=== PATIENT | female | born 1960 | race American Indian/Alaskan Native ===

== ENCOUNTER 2017-08-04 15:11 | Inpatient (IN) | payer MEDICAID ==
--- NOTE | 2017-08-04 16:23 | Emergency Department Report ---
HPI - General Chief Complaint: Weakness Time Seen by Provider: 08/04/17 16:06 - HPI HPI: Room 19 The patient is a 57-year-old female presenting with a chief complaint of bilateral lower extremity weakness. The patient states she went to sleep last night at 21:30 in her normal state of health and awakened this morning at approximately 11:30 and noticed weakness in bilateral lower extremities. The patient states she also noticed pain in her lower back at that time. The patient states she was unable to get out of bed. The patient has a history of right-sided weakness from previous CVA in 2016 states the weakness in her right leg is different from this residual deficit. Patient denies any history of fever or recent URI symptoms. Patient denies any other complaints Location: Low back, bilateral lower extremities Duration:, Constant since since 11:30 Quality: Weakness Severity: Moderate Modifying factors: [see above] Context: [see above] Mode of transportation: [not driving] ED Past Medical Hx - Past Medical History Hx Hypertension: Yes Hx CVA: Yes (right sided deficits) Hx Diabetes: Yes Hx Arthritis: Yes Additional medical history: Lupus, neuropathy - Surgical History Hx Cholecystectomy: Yes - Family History Family history: no significant - Social History Smoking Status: Never Smoker Substance Use Type: None - Medications Home Medications: Home Medications Medication Instructions Recorded Confirmed Last Taken Type Ranitidine HCl [Zantac 300 MG TAB] 300 mg PO QPM 06/02/14 04/01/15 02/08/15 History Sertraline [Zoloft] 50 mg PO QDAY 06/02/14 04/01/15 02/08/15 History Zolpidem [Ambien] 10 mg PO HS PRN #30 tablet 02/22/15 04/01/15 Unknown Rx Clopidogrel [Plavix] 75 mg PO QDAY #30 tablet 04/01/15 Unknown Rx Hydroxychloroquine [Plaquenil] 200 mg PO QDAY #30 tablet 04/01/15 Unknown Rx Insulin Glargine [Lantus VIAL] 100 units SQ QHS #30 day 04/01/15 Unknown Rx Insulin NPH/Regular [NovoLIN 70/30] 10 unit SUB-Q BIDDIAB #30 day 04/01/15 Unknown Rx Lisinopril/Hydrochlorothiazide 1 tab PO QDAY #30 tablet 04/01/15 Unknown Rx [Zestoretic 10-12.5 mg] Pantoprazole [Protonix TAB] 40 mg PO QDAY #30 tablet 04/01/15 Unknown Rx Pregabalin [Lyrica] 100 mg PO TID #90 capsule 04/01/15 Unknown Rx Simvastatin [Zocor TAB] 20 mg PO QHS #30 tablet 04/01/15 Unknown Rx hydrOXYzine PAMOATE [Vistaril] 50 mg PO Q4HR PRN #30 capsule 04/01/15 Unknown Rx metFORMIN [Glucophage] 850 mg PO BID #60 tablet 04/01/15 Unknown Rx predniSONE [Deltasone] 20 mg PO QDAY #30 tablet 04/01/15 Unknown Rx Oxycodone HCl/Acetaminophen 1 tab PO Q6HR PRN #30 tablet 04/02/15 Unknown Rx [Percocet 7.5/325 mg] ED Review of Systems ROS: Stated complaint: UNABLE TO WALK Other details as noted in HPI Comment: All other systems reviewed and negative Constitutional: denies: chills, fever Eyes: denies: eye pain, eye discharge, vision change ENT: denies: ear pain, throat pain Respiratory: denies: cough, shortness of breath, wheezing Cardiovascular: denies: chest pain, palpitations Endocrine: no symptoms reported Gastrointestinal: denies: abdominal pain, nausea, diarrhea Genitourinary: denies: urgency, dysuria, discharge Musculoskeletal: back pain Skin: denies: rash, lesions Neurological: weakness. denies: paresthesias Psychiatric: denies: anxiety, depression Hematological/Lymphatic: denies: easy bleeding, easy bruising Physical Exam - Physical Exam Vital Signs: Vital Signs 08/04/17 15:49 Temperature 98.4 F Pulse Rate 72 Respiratory 18 Rate Blood Pressure 170/89 O2 Sat by Pulse 100 Oximetry Physical Exam: GENERAL: The patient is well-developed well-nourished female lying on stretcher not appearing to be in acute distress. [] HEENT: Normocephalic. Atraumatic. Extraocular motions are intact. Patient has moist mucous membranes. NECK: Supple. Trachea midline CHEST/LUNGS: Clear to auscultation. There is no respiratory distress noted. HEART/CARDIOVASCULAR: Regular. There is no tachycardia. There is no gallop rub or murmur. ABDOMEN: There is no abdominal distention. SKIN: There is no rash. There is no edema. There is no diaphoresis. NEURO: The patient is awake, alert, and oriented. The patient is cooperative. Normal sensation bilateral lower extremities. Patient able to flex right lower extremity at the knee and hip although with some difficulty. Patient also able to flex left lower extremity at knee and hip with considerably less effort than the right. 2+ bilateral patellar DTRs. The patient has normal speech. 1-2 beats of clonus bilateral feet MUSCULOSKELETAL: There is pain in the lumbar spine. There is no evidence of acute injury. ED Course Vital Signs 08/04/17 15:49 Temperature 98.4 F Pulse Rate 72 Respiratory 18 Rate Blood Pressure 170/89 O2 Sat by Pulse 100 Oximetry ED Medical Decision Making - Lab Data Result diagrams: 08/04/17 16:30 08/04/17 16:30 Laboratory Tests 08/04/17 08/04/17 08/04/17 15:51 16:30 16:30 WBC 4.3 L RBC 2.92 L Hgb 9.9 L Hct 29.1 L MCV 100 H MCH 34 H MCHC 34 RDW 16.5 H Plt Count 180 Lymph % (Auto) 52.0 H [place] % (Auto) 6.1 Eos % (Auto) 1.7 Baso % (Auto) 0.1 Lymph # 2.2 [place] # 0.3 Eos # 0.1 Baso # 0.0 Seg Neutrophils % 40.1 Seg Neutrophils # 1.7 L PT 14.5 INR 1.07 APTT 29.9 Thrombin Time Sodium Potassium Chloride Carbon Dioxide Anion Gap BUN Creatinine Estimated GFR BUN/Creatinine Ratio Glucose POC Glucose 115 H Calcium Troponin T 08/04/17 08/04/17 16:30 16:30 WBC RBC Hgb Hct MCV MCH MCHC RDW Plt Count Lymph % (Auto) [place] % (Auto) Eos % (Auto) Baso % (Auto) Lymph # [place] # Eos # Baso # Seg Neutrophils % Seg Neutrophils # PT INR APTT Thrombin Time 15.1 Sodium 141 Potassium 4.5 Chloride 104.3 Carbon Dioxide 25 Anion Gap 16 BUN 15 Creatinine 0.6 L Estimated GFR > 60 BUN/Creatinine Ratio 25 Glucose 101 H POC Glucose Calcium 9.3 Troponin T < 0.010 - EKG Data -: EKG Interpreted by [place] EKG shows normal: sinus rhythm Rate: normal - EKG Data When compared to previous EKG there are: previous EKG unavailable Interpretation: normal EKG - Radiology Data Radiology results: report reviewed (CT head, MRI L spine), image reviewed (CT head, MRI L spine) CT head (read by radiologist)-chronic ischemic changes as noted above. No acute intracranial findings MRI lumbar spine (read by radiologist) 6-multilevel degenerative disc disease most pronounced at L4-5 where there is 12 mm of anterolisthesis, a large broad- based posterior disc bulge, severe bilateral facet arthropathy with severe bilateral neuroforaminal narrowing and mild spinal stenosis. - Differential Diagnosis transverse myelitis, Guillan-[place] syndrome, electrolyte imbalance, lumbar Critical care attestation.: If time is entered above; I have spent that time in minutes in the direct care of this critically ill patient, excluding procedure time. ED Disposition Clinical Impression: Bilateral leg weakness Disposition: OP ADMIT IP TO THIS HOSP Is pt being admited?: Yes Does the pt Need Aspirin: Yes Condition: Fair Referrals: PRIMARY CARE, [Primary Care Provider] - 3-5 Days Time of Disposition: 19:32 (Hospitalist paged)
[2017-08-04 16:44] LABS: Red Blood Count 2.92 M/mm3 (3.65-5.03); White Blood Count 4.3 K/mm3 (4.5-11.0)
[2017-08-04 16:45] LABS: Basophils % (Auto) 0.1 % (0.0-1.8); Eosinophils % (Auto) 1.7 % (0.0-4.3); Hematocrit 29.1 % (30.3-42.9); Hemoglobin 9.9 gm/dl (10.1-14.3); Mean Corpuscular HGB Conc 34 % (30-34); Mean Corpuscular Hemoglobin 34 pg (28-32); Mean Corpuscular Volume 100 fl (79-97); Platelet Count 180 K/mm3 (140-440); Red Cell Distribution Width 16.5 % (13.2-15.2)
[2017-08-04 16:54] LABS: INR 1.07 (0.87-1.13)
[2017-08-04 16:55] LABS: Anion Gap 16 mmol/L; BUN/Creatinine Ratio 25; Blood Urea Nitrogen 15 mg/dL (7-17); Calcium 9.3 mg/dL (8.4-10.2); Carbon Dioxide 25 mmol/L (22-30); Chloride 104.3 mmol/L (98-107); Glucose 101 mg/dL (65-100); Partial Thromboplastin Time 29.9 Sec. (24.2-36.6); Potassium 4.5 mmol/L (3.6-5.0); Sodium 141 mmol/L (137-145)
--- NOTE | 2017-08-04 17:54 | Cat Scan Report ---
FINAL REPORT EXAM: CT HEAD/BRAIN WO CON HISTORY: neuro deficits bilat extrem weakness TECHNIQUE: CT head without contrast PRIORS: None. FINDINGS: There is encephalomalacia both frontal lobes and right posterior temporal/parietal lobes consistent with remote ischemic changes. Remote lacunar infarcts are present within both thalami. There are patchy areas of hypodensity throughout the supratentorial white matter. No acute intra or extra-axial hemorrhage identified.. No acute parenchymal abnormalities are identified. No evidence for midline shift or mass effect. IMPRESSION: Chronic ischemic changes as noted above No acute intracranial findings
[2017-08-04] MEDS ORDERED: NORCO 5/325 PO ONE (18:09)
--- NOTE | 2017-08-04 19:24 | Magnetic Resonance Report ---
FINAL REPORT EXAM: MR LUMBAR SPINE WO CON HISTORY: bilateral lower extremity weakness, low back pain TECHNIQUE: MRI of the lumbar spine: Axial: T1, T2 Sagittal: T1, T2 and STIR PRIORS: None. FINDINGS: The lumbar vertebral bodies are normal in height. There is 12 mm of anterolisthesis of L4 on L5 and 3 mm of retrolisthesis L5 on S1. There is diffuse disc desiccation the paraspinous soft tissues are unremarkable. The conus medullaris is in a normal location and has a normal signal intensity and appearance. The following levels were evaluated in the axial plane: T 12-L1: No disc bulge or protrusion. The facet joints appear well preserved. No spinal or foraminal stenosis. L1-L2: No disc bulge or protrusion. The facet joints appear well preserved. No spinal or foraminal stenosis. L2-L3: No disc bulge or protrusion. The facet joints appear well preserved. Mild right neural foraminal narrowing. Bilateral lateral recess narrowing. No spinal or foraminal stenosis. L3-L4: Broad-based posterior disc bulge. Moderate to severe bilateral facet and ligamentum flavum hypertrophy. Mild bilateral neural foraminal narrowing. No spinal or foraminal stenosis. L4-L5: Anterolisthesis L4 on L5 with unroofing of the posterior margin of the disc. Large broad-based posterior disc bulge. Severe bilateral facet arthropathy. Severe bilateral neural foraminal narrowing and mild spinal stenosis. L5-S1: Broad-based posterior disc bulge that appears to make contact with the bilateral S1 nerve roots.. Moderate to severe for bilateral facet arthropathy. Severe bilateral neural foraminal narrowing. No spinal or foraminal stenosis. IMPRESSION: 1. Multilevel degenerative disc disease most pronounced at L4-5 where there is 12 mm of anterolisthesis, a large broad-based posterior disc bulge, severe bilateral facet arthropathy with severe bilateral neural foraminal narrowing and mild spinal stenosis 2. Please see the full description of findings above.
--- NOTE | 2017-08-04 19:42 | History and Physical Report ---
History of Present Illness Chief complaint: I feel weak, on the other side now. History of present illness: 57 YO Female with HTN, CVA with RHP, DM, OA, SLE, Neuropathy, Moderate-Severe LDD presents to ED for evaluation. Pt states that she was in her normal state of health when went to bed, but awoke around 1130 hrs and experienced an acute onset of Left side weakness. Pt states that she was unable to get out of bed. Pt also states that she experienced pain in her back. Pt denies fever, chills, CP, Palpitations, NVD, syncope, productive cough, recent ill contacts, vision changes, vertigo, trauma, loss of bowel/bladder continence. Past History Past Medical History: arthritis, diabetes, hypertension, stroke, other (lupus) Past Surgical History: cholecystectomy Social history: single. denies: smoking, alcohol abuse, prescription drug abuse Family history: hypertension Medications and Allergies Allergies Allergy/AdvReac Type Severity Reaction Status Date / Time ketorolac tromethamine AdvReac Nausea Verified 04/01/15 10:49 [From Toradol] morphine AdvReac Nausea Verified 04/01/15 10:49 Home Medications Medication Instructions Recorded Confirmed Last Taken Type Ranitidine HCl [Zantac 300 MG TAB] 300 mg PO QPM 06/02/14 04/01/15 02/08/15 History Sertraline [Zoloft] 50 mg PO QDAY 06/02/14 04/01/15 02/08/15 History Zolpidem [Ambien] 10 mg PO HS PRN #30 tablet 02/22/15 04/01/15 Unknown Rx Clopidogrel [Plavix] 75 mg PO QDAY #30 tablet 04/01/15 Unknown Rx Hydroxychloroquine [Plaquenil] 200 mg PO QDAY #30 tablet 04/01/15 Unknown Rx Insulin Glargine [Lantus VIAL] 100 units SQ QHS #30 day 04/01/15 Unknown Rx Insulin NPH/Regular [NovoLIN 70/30] 10 unit SUB-Q BIDDIAB #30 day 04/01/15 Unknown Rx Lisinopril/Hydrochlorothiazide 1 tab PO QDAY #30 tablet 04/01/15 Unknown Rx [Zestoretic 10-12.5 mg] Pantoprazole [Protonix TAB] 40 mg PO QDAY #30 tablet 04/01/15 Unknown Rx Pregabalin [Lyrica] 100 mg PO TID #90 capsule 04/01/15 Unknown Rx Simvastatin [Zocor TAB] 20 mg PO QHS #30 tablet 04/01/15 Unknown Rx hydrOXYzine PAMOATE [Vistaril] 50 mg PO Q4HR PRN #30 capsule 04/01/15 Unknown Rx metFORMIN [Glucophage] 850 mg PO BID #60 tablet 04/01/15 Unknown Rx predniSONE [Deltasone] 20 mg PO QDAY #30 tablet 04/01/15 Unknown Rx Oxycodone HCl/Acetaminophen 1 tab PO Q6HR PRN #30 tablet 04/02/15 Unknown Rx [Percocet 7.5/325 mg] Review of Systems Constitutional: no weight loss, no weight gain, no fever, no chills, no sweats Ears, nose, mouth and throat: no ear pain, no ear discharge, no tinnitis, no decreased hearing, no nose pain, no nasal congestion, no nasal discharge Cardiovascular: no chest pain, no orthopnea, no palpitations, no edema, no syncope, no lightheadedness Respiratory: no cough, no cough with sputum, no excessive sputum, no hemoptysis , no shortness of breath Gastrointestinal: no abdominal pain, no nausea, no vomiting, no diarrhea, no constipation, no change in bowel habits Genitourinary Female: no pelvic pain, no flank pain, no dysuria, no urinary frequency, no urgency Rectal: no pain, no incontinence, no bleeding Musculoskeletal: low back pain, no neck stiffness, no neck pain, no shooting arm pain, no arm numbness/tingling Integumentary: no rash, no pruritis, no redness, no sores, no wounds Neurological: weakness, parathesias, numbness, gait dysfunction, motor disturbance, no head injury, no transient paralysis, no paralysis, no tingling, no seizures, no syncope, no vertigo, no headaches, no migraines Psychiatric: no anxiety, no memory loss, no change in sleep habits, no sleep disturbances, no insomnia, no hypersomnia, no change in appetite Endocrine: no cold intolerance, no heat intolerance, no polyphagia, no excessive thirst, no polydipsia, no polyuria, no nocturia Hematologic/Lymphatic: no easy bruising, no easy bleeding Allergic/Immunologic: no urticaria, no allergic rhinitis, no wheezing Exam - Constitutional Vitals: Temp Pulse Resp BP Pulse Ox 98.4 F 60 13 192/82 100 08/04/17 15:49 08/04/17 19:00 08/04/17 19:00 08/04/17 19:00 08/04/17 18:45 General appearance: Present: mild distress, obese - EENT Eyes: Present: PERRL ENT: hearing intact, clear oral mucosa - Neck Neck: Present: supple, normal ROM - Respiratory Respiratory effort: normal Respiratory: bilateral: CTA - Cardiovascular Heart Sounds: Present: S1 & S2. Absent: rub, click - Extremities Extremities: pulses symmetrical, No edema Peripheral Pulses: within normal limits - Abdominal General gastrointestinal: Present: soft, non-tender, non-distended, normal bowel sounds Female genitourinary: Present: normal - Integumentary Integumentary: Present: clear, warm, dry - Musculoskeletal Musculoskeletal: right sided weakness, left sided weakness - Psychiatric Psychiatric: appropriate mood/affect, intact judgment & insight - Neurologic Neurologic: moves all extremities, no gait normal Results - Labs CBC & Chem 7: 08/04/17 16:30 08/04/17 16:30 Labs: Abnormal lab results 08/04/17 08/04/17 08/04/17 Range/Units 15:51 16:30 16:30 WBC 4.3 L (4.5-11.0) K/mm3 RBC 2.92 L (3.65-5.03) M/mm3 Hgb 9.9 L (10.1-14.3) gm/dl Hct 29.1 L (30.3-42.9) % MCV 100 H (79-97) fl MCH 34 H (28-32) pg RDW 16.5 H (13.2-15.2) % Lymph % (Auto) 52.0 H (13.4-35.0) % Seg Neutrophils # 1.7 L (1.8-7.7) K/mm3 Creatinine 0.6 L (0.7-1.2) mg/dL Glucose 101 H (65-100) mg/dL POC Glucose 115 H (70-105) Assessment and Plan - Patient Problems (1) CVA (cerebral infarction) Onset Date: 05/24/14 Current Visit: No Status: Suspected Qualifiers: Cerebral infarction mechanism: C Precerebral and cerebral artery: middle cerebral artery Laterality of affected vessel: right Plan to address problem: Suspected Stroke versus exacerbation of Lumbar Disk Disease: Will treat with stroke protocol: CT head, MRI/MRA brain, echo, carotid doppler, PT/OT/Speech therapy, Swallow evaluation, anti platelet therapy. (2) Accelerated hypertension Current Visit: Yes Status: Acute Plan to address problem: Monitor bp q shift, Permissive hypertension overnight. Systolic BP range between 160-185 overnight. 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
[2017-08-04] MEDS ORDERED: ZOFRAN IV PRN (19:45)
[2017-08-04] MEDS ORDERED: REGLAN PO PRN (19:45)
[2017-08-04] MEDS ORDERED: TYLENOL PO PRN (19:45)
[2017-08-04] MEDS ORDERED: DULCOLAX PR PRN (19:45)
[2017-08-04] MEDS ORDERED: PHENERGAN PR PRN (19:45)
[2017-08-04] MEDS ORDERED: SODIUM CHLORIDE FLUSH SYRINGE 10 ML IV PRN (19:45)
[2017-08-04] MEDS ORDERED: ACETAMINOPHEN PO PRN (19:49)
[2017-08-04] MEDS ORDERED: OXYCODONE HCL PO PRN (19:49)
[2017-08-04] MEDS ORDERED: VISTARIL PO PRN (19:49)
[2017-08-04] MEDS ORDERED: NON-FORMULARY (Pregabalin [Lyrica] 100 MG) PO SCH (20:00)
[2017-08-04] MEDS ORDERED: ZOCOR PO SCH (22:00)
[2017-08-04] MEDS ORDERED: INSULIN GLARGINE 100 UNIT SQ SCH (22:00)
[2017-08-04] MEDS: LYRICA PO SCH (22:31)
[2017-08-04] MEDS: ZOCOR PO SCH (22:32)
[2017-08-05] MEDS: PERCOCET 5/325 PO PRN (08:25)
[2017-08-05] MEDS: LYRICA PO SCH ×3 (08:26→20:56)
[2017-08-05] MEDS ORDERED: NON-FORMULARY (Lisinopril/Hydrochlorothiazide [Zestoretic 10-12.5 Mg] 1 TAB) PO SCH (10:00)
[2017-08-05] MEDS ORDERED: ZESTRIL PO SCH (10:00)
[2017-08-05] MEDS ORDERED: Fluarix Quad 2017-2018(36 MOS+) IM ONE (12:00)
--- NOTE | 2017-08-05 12:16 | Magnetic Resonance Report ---
MRI OF THE BRAIN WITHOUT CONTRAST: HISTORY: CVA PROCEDURE: Multiplanar, multisequence MR imaging of the brain without IV contrast was performed. FINDINGS: Compared to the CT head dated 08/04/17. There are moderate size chronic cortical infarcts in the right parietal lobe and both frontal lobes. Chronic lacunar infarcts are also identified in the bilateral basal ganglia. Advanced chronic white matter changes are also identified. A 7 mm focus of diffusion restriction is identified along the margin of the right a right total chronic infarct consistent with a focus of subacute ischemia. No other areas of diffusion restriction are identified. No evidence for hemorrhage, mass or extra-axial fluid collection. The midline structures are central. The basal cisterns are patent. Normal ventricular size. The orbital cavities and sella turcica demonstrate no abnormality. The visualized paranasal sinuses and mastoid air cells are well aerated. IMPRESSION: 7 mm focus of diffusion restriction in the right parietal lobe as outlined above. To be along the margin of a previous chronic right parietal infarct. Multiple chronic infarcts as outlined above. Chronic white matter changes
--- NOTE | 2017-08-05 12:23 | Magnetic Resonance Report ---
MRA HEAD WITHOUT CONTRAST HISTORY: Stroke. [id number] imaging with MIP reformations of the [place] is submitted. There is a small area of diminished intravascular signal within the left M2 segment of the left MCA within the left sylvian fissure which is best appreciated on axial image 79. This could represent a focal stenosis or possibly a partial thrombosis. Please correlate with the images and patient's clinical presentation. Please note this is on the contralateral side from the focal area of ischemia in the right parietal lobe. Endovascular signal throughout the remainder of the anterior and posterior circulations are within normal limits. Hypoplastic right A1 segment is noted. No evidence for aneurysm or dissection. IMPRESSION: Focal area of stenosis or partial thrombosis in the left M2 segment as outlined above.
[2017-08-05] MEDS: PROTONIX PO SCH (12:55)
[2017-08-05] MEDS: ZOLOFT PO SCH (12:56)
[2017-08-05] MEDS: DELTASONE PO SCH (12:56)
[2017-08-05] MEDS: HCTZ PO SCH (12:57)
[2017-08-05] MEDS: PLAQUENIL PO SCH (12:57)
[2017-08-05] MEDS: ASPIRIN PO SCH (12:58)
[2017-08-05] MEDS: PLAVIX PO SCH (12:58)
--- NOTE | 2017-08-05 15:35 | Consultation ---
History of Present Illness - Reason for Consult Consult date: 08/05/17 stroke - History of Present Illness patient is seen and evaluated she has chronic right sided weakness from an old stroke there may be very small new infarct on the right parietal lobe will review all other studies Thanks Past History Past Medical History: arthritis, diabetes, hypertension, stroke, other (lupus) Past Surgical History: cholecystectomy Social history: single. denies: smoking, alcohol abuse, prescription drug abuse Family history: hypertension Medications and Allergies Allergies Allergy/AdvReac Type Severity Reaction Status Date / Time ketorolac tromethamine AdvReac Nausea Verified 04/01/15 10:49 [From Toradol] morphine AdvReac Nausea Verified 04/01/15 10:49 Home Medications Medication Instructions Recorded Confirmed Last Taken Type Ranitidine HCl [Zantac 300 MG TAB] 300 mg PO QPM 06/02/14 08/04/17 02/08/15 History Sertraline [Zoloft] 50 mg PO QDAY 06/02/14 08/04/17 02/08/15 History Zolpidem [Ambien] 10 mg PO HS PRN #30 tablet 02/22/15 08/04/17 08/02/17 Rx Clopidogrel [Plavix] 75 mg PO QDAY #30 tablet 04/01/15 08/04/17 08/03/17 Rx Hydroxychloroquine [Plaquenil] 200 mg PO QDAY #30 tablet 04/01/15 08/04/17 Unknown Rx Insulin Glargine [Lantus VIAL] 100 units SQ QHS #30 day 04/01/15 08/04/17 Unknown Rx Insulin NPH/Regular [NovoLIN 70/30] 10 unit SUB-Q BIDDIAB #30 day 04/01/1508/0408/03/17 Rx Lisinopril/Hydrochlorothiazide 1 tab PO QDAY #30 tablet 04/01/15 08/04/17 Rx [Zestoretic 10-12.5 mg] Pantoprazole [Protonix TAB] 40 mg PO QDAY #30 tablet 04/01/15 08/04/17 Unknown Rx Pregabalin [Lyrica] 100 mg PO TID #90 capsule 04/01/15 08/04/17 08/02/17 Rx Simvastatin [Zocor TAB] 20 mg PO QHS #30 tablet 04/01/15 08/04/17 08/02/17 Rx hydrOXYzine PAMOATE [Vistaril] 50 mg PO Q4HR PRN #30 capsule 04/01/15 08/04/17 08/03/17 Rx metFORMIN [Glucophage] 850 mg PO BID #60 tablet 04/01/15 08/04/17 08/02/17 Rx predniSONE [Deltasone] 20 mg PO QDAY #30 tablet 04/01/15 08/04/17 08/01/17 Rx Oxycodone HCl/Acetaminophen 1 tab PO Q6HR PRN #30 tablet 04/02/15 08/04/17 Unknown Rx [Percocet 7.5/325 mg] Active Meds: Active Medications Acetaminophen (Tylenol) 650 mg PO Q4H PRN PRN Reason: Pain, Mild (1-3) Aspirin (Aspirin) 325 mg PO QDAY [facility] Last Admin: 08/05/17 12:58 Dose: 325 mg Bisacodyl (Dulcolax) 10 mg [place] QDAY PRN PRN Reason: Constipation Clopidogrel Bisulfate (Plavix) 75 mg PO QDAY [facility] Last Admin: 08/05/17 12:58 Dose: 75 mg Famotidine (Pepcid) 20 mg PO QPM [facility] Hydrochlorothiazide (Hctz) 12.5 mg PO QDAY [facility] Last Admin: 08/05/17 12:57 Dose: 12.5 mg Hydroxychloroquine Sulfate (Plaquenil) 200 mg PO QDAY [facility] Last Admin: 08/05/17 12:57 Dose: 200 mg Hydroxyzine Pamoate (Vistaril) 50 mg PO Q4HR PRN PRN Reason: Itching Insulin Human Isoph/Insulin Regular (Novolin 70/30) 10 unit SUB-Q BIDDIAB [facility] Last Admin: 08/05/17 12:50 Dose: 10 unit Magnesium Hydroxide (Milk Of Magnesia) 30 ml PO Q4H PRN PRN Reason: Constipation Methylprednisolone Sodium Succinate (Solu-Medrol) 20 mg IV Q12HR [facility] Last Admin: 08/05/17 12:54 Dose: 20 mg Metoclopramide HCl (Reglan) 10 mg PO Q6H PRN PRN Reason: Nausea And Vomiting Miscellaneous Medication (Insulin Glargine) 100 units SQ QHS [facility] Ondansetron HCl (Zofran) 4 mg IV Q8H PRN PRN Reason: N/V unrelieved by Reglan Oxycodone HCl (Roxicodone) 2.5 mg PO Q6H PRN PRN Reason: Pain, Moderate (4-6) Oxycodone/Acetaminophen (Percocet 5/325) 1 tab PO Q6H PRN PRN Reason: Pain, Moderate (4-6) Last Admin: 08/05/17 08:25 Dose: 1 tab Pantoprazole Sodium (Protonix) 40 mg PO QDAY [facility] Last Admin: 08/05/17 12:55 Dose: 40 mg Prednisone (Deltasone) 20 mg PO QDAY [facility] Last Admin: 08/05/17 12:56 Dose: 20 mg Pregabalin (Lyrica) 100 mg PO TID [facility] Last Admin: 08/05/17 13:12 Dose: 100 mg Promethazine HCl (Phenergan) 25 mg [place] Q6H PRN PRN Reason: Nausea And Vomiting Sertraline HCl (Zoloft) 50 mg PO QDAY [facility] Last Admin: 08/05/17 12:56 Dose: 50 mg Simvastatin (Zocor) 20 mg PO QHS [facility] Last Admin: 08/04/17 22:32 Dose: 20 mg Sodium Chloride (Sodium Chloride Flush Syringe 10 Ml) 10 ml IV PRN PRN PRN Reason: LINE FLUSH Zolpidem Tartrate (Ambien) 10 mg PO HS PRN PRN Reason: Sleep Exam - Constitutional Vitals: Temp Pulse Resp BP Pulse Ox 98.3 F 62 18 197/100 100 08/05/17 12:22 08/05/17 12:22 08/05/17 12:22 08/05/17 12:22 08/05/17 12:22 Results - Labs CBC & Chem 7: 08/04/17 16:30 08/04/17 16:30 Labs: Abnormal lab results 08/05/17 08/05/17 Range/Units 12:40 14:02 POC Glucose 141 H 166 H (70-105)
[2017-08-05] MEDS ORDERED: D50W (25GM) Syringe IV PRN (17:25)
--- NOTE | 2017-08-05 17:37 | Progress Note ---
Assessment and Plan Assessment and plan: CVA -MRI -7 mm focus of diffusion restriction in the right parietal lobe consistent with a focus of subacute ischemia - Multiple chronic infarcts - Chronic right parietal infarct MRA -Focal area of stenosis or parietal thrombosis in the left M2 segment Echo - Normal - Patient is on aspirin, statin - Neurology consulted, PT OT consulted Hypertension - Permissive hypertension - We will give blood pressure medication if patient is going above 185\ Diabetes mellitus - Sliding scale insulin - 70/30 10 units twice a day Degenerative disc disease - MRI showed degenerative disc disease, spinal stenosis - Pain control, outpatient follow-up with spinal surgery - Continue home dose of steroid DVT prophylaxis - Heparin Disposition - Continue inpatient care. Hospitalist Physical - Constitutional Vitals: Temp Pulse Resp BP Pulse Ox 98.3 F 62 18 197/100 100 08/05/17 12:22 08/05/17 12:22 08/05/17 12:22 08/05/17 12:22 08/05/17 12:22 General appearance: Present: mild distress, obese Results - Labs CBC & Chem 7: 08/04/17 16:30 08/04/17 16:30 Labs: Laboratory Last Values WBC 4.3 K/mm3 (4.5-11.0) L 08/04/17 16:30 RBC 2.92 M/mm3 (3.65-5.03) L 08/04/17 16:30 Hgb 9.9 gm/dl (10.1-14.3) L 08/04/17 16:30 Hct 29.1 % (30.3-42.9) L 08/04/17 16:30 MCV 100 fl (79-97) H 08/04/17 16:30 MCH 34 pg (28-32) H 08/04/17 16:30 MCHC 34 % (30-34) 08/04/17 16:30 RDW 16.5 % (13.2-15.2) H 08/04/17 16:30 Plt Count 180 K/mm3 (140-440) 08/04/17 16:30 Lymph % (Auto) 52.0 % (13.4-35.0) H 08/04/17 16:30 [place] % (Auto) 6.1 % (0.0-7.3) 08/04/17 16:30 Eos % (Auto) 1.7 % (0.0-4.3) 08/04/17 16:30 Baso % (Auto) 0.1 % (0.0-1.8) 08/04/17 16:30 Lymph # 2.2 K/mm3 (1.2-5.4) 08/04/17 16:30 [place] # 0.3 K/mm3 (0.0-0.8) 08/04/17 16:30 Eos # 0.1 K/mm3 (0.0-0.4) 08/04/17 16:30 Baso # 0.0 K/mm3 (0.0-0.1) 08/04/17 16:30 Seg Neutrophils % 40.1 % (40.0-70.0) 08/04/17 16:30 Seg Neutrophils # 1.7 K/mm3 (1.8-7.7) L 08/04/17 16:30 PT 14.5 Sec. (12.2-14.9) 08/04/17 16:30 INR 1.07 (0.87-1.13) 08/04/17 16:30 APTT 29.9 Sec. (24.2-36.6) 08/04/17 16:30 Thrombin Time 15.1 Sec. (15.1-19.6) 08/04/17 16:30 Sodium 141 mmol/L (137-145) 08/04/17 16:30 Potassium 4.5 mmol/L (3.6-5.0) 08/04/17 16:30 Chloride 104.3 mmol/L (98-107) 08/04/17 16:30 Carbon Dioxide 25 mmol/L (22-30) 08/04/17 16:30 Anion Gap 16 mmol/L 08/04/17 16:30 BUN 15 mg/dL (7-17) 08/04/17 16:30 Creatinine 0.6 mg/dL (0.7-1.2) L 08/04/17 16:30 Estimated GFR > 60 ml/min 08/04/17 16:30 BUN/Creatinine Ratio 25 % 08/04/17 16:30 Glucose 101 mg/dL (65-100) H 08/04/17 16:30 POC Glucose 166 (70-105) H 08/05/17 14:02 Calcium 9.3 mg/dL (8.4-10.2) 08/04/17 16:30 Troponin T < 0.010 ng/mL (0.00-0.029) 08/04/17 16:30 Triglycerides 47 mg/dL (2-149) 08/05/17 05:22 Cholesterol 183 mg/dL (50-199) 08/05/17 05:22 LDL Cholesterol Direct 128 mg/dL (50-130) 08/05/17 05:22 HDL Cholesterol 46 mg/dL (40-59) 08/05/17 05:22 Cholesterol/HDL Ratio 3.97 % 08/05/17 05:22
[2017-08-05] MEDS ORDERED: NON-FORMULARY (Ranitidine Hcl [Zantac 300 Mg Tab] 300 MG) PO SCH (18:00)
[2017-08-05] MEDS: ZOCOR PO SCH (21:00)
[2017-08-05] MEDS: MILK OF MAGNESIA PO PRN (21:03)
[2017-08-05] MEDS: NOVOLOG SUB-Q SCH (22:42)
[2017-08-05] MEDS: AMBIEN PO PRN (22:42)
[2017-08-05] MEDS: PEPCID PO SCH (22:42)
[2017-08-06 05:46] LABS: Hematocrit 30.5 % (30.3-42.9); Hemoglobin 10.5 gm/dl (10.1-14.3); Mean Corpuscular HGB Conc 35 % (30-34); Mean Corpuscular Hemoglobin 34 pg (28-32); Mean Corpuscular Volume 99 fl (79-97); Platelet Count 197 K/mm3 (140-440); Red Blood Count 3.08 M/mm3 (3.65-5.03); Red Cell Distribution Width 16.5 % (13.2-15.2); White Blood Count 10.4 K/mm3 (4.5-11.0)
[2017-08-06 06:07] LABS: Anion Gap 15 mmol/L; BUN/Creatinine Ratio 22; Blood Urea Nitrogen 11 mg/dL (7-17); Calcium 9.4 mg/dL (8.4-10.2); Carbon Dioxide 27 mmol/L (22-30); Chloride 102.6 mmol/L (98-107); Glucose 116 mg/dL (65-100); Potassium 4.2 mmol/L (3.6-5.0); Sodium 140 mmol/L (137-145)
[2017-08-06] MEDS: LYRICA PO SCH ×3 (07:29→22:11)
[2017-08-06] MEDS: NOVOLOG SUB-Q SCH ×4 (07:33→22:13)
--- NOTE | 2017-08-06 08:25 | Consultation ---
History of Present Illness - Reason for Consult Consult date: 08/06/17 stroke - History of Present Illness there are number of factors present in the MRA and MRIn that are documented there is LEFT sided MCA stenosis and new infarct in the RIGHT parietal lobe in part patient was having a TIA of the left side-- a/w right arm weakness and tingling recommend high dose statin BP control and 325 mg aspirin .... basically new and old infarcts and TIA's as well as stenosis of the left MCA ( non surgical) Past History Past Medical History: arthritis, diabetes, hypertension, stroke, other (lupus) Past Surgical History: cholecystectomy Social history: single. denies: smoking, alcohol abuse, prescription drug abuse Family history: hypertension Medications and Allergies Allergies Allergy/AdvReac Type Severity Reaction Status Date / Time ketorolac tromethamine AdvReac Nausea Verified 04/01/15 10:49 [From Toradol] morphine AdvReac Nausea Verified 04/01/15 10:49 Home Medications Medication Instructions Recorded Confirmed Last Taken Type Ranitidine HCl [Zantac 300 MG TAB] 300 mg PO QPM 06/02/14 08/04/17 02/08/15 History Sertraline [Zoloft] 50 mg PO QDAY 06/02/14 08/04/17 02/08/15 History Zolpidem [Ambien] 10 mg PO HS PRN #30 tablet 02/22/15 08/04/17 08/02/17 Rx Clopidogrel [Plavix] 75 mg PO QDAY #30 tablet 04/01/15 08/04/17 08/03/17 Rx Hydroxychloroquine [Plaquenil] 200 mg PO QDAY #30 tablet 04/01/15 08/04/17 Unknown Rx Insulin Glargine [Lantus VIAL] 100 units SQ QHS #30 day 04/01/15 08/04/17 Unknown Rx Insulin NPH/Regular [NovoLIN 70/30] 10 unit SUB-Q BIDDIAB #30 day 04/01/1508/0408/03/17 Rx Lisinopril/Hydrochlorothiazide 1 tab PO QDAY #30 tablet 04/01/15 08/04/17 Rx [Zestoretic 10-12.5 mg] Pantoprazole [Protonix TAB] 40 mg PO QDAY #30 tablet 04/01/15 08/04/17 Unknown Rx Pregabalin [Lyrica] 100 mg PO TID #90 capsule 04/01/15 08/04/17 08/02/17 Rx Simvastatin [Zocor TAB] 20 mg PO QHS #30 tablet 04/01/15 08/04/17 08/02/17 Rx hydrOXYzine PAMOATE [Vistaril] 50 mg PO Q4HR PRN #30 capsule 04/01/15 08/04/17 08/03/17 Rx metFORMIN [Glucophage] 850 mg PO BID #60 tablet 04/01/15 08/04/17 08/02/17 Rx predniSONE [Deltasone] 20 mg PO QDAY #30 tablet 04/01/15 08/04/17 08/01/17 Rx Oxycodone HCl/Acetaminophen 1 tab PO Q6HR PRN #30 tablet 04/02/15 08/04/17 Unknown Rx [Percocet 7.5/325 mg] Active Meds: Active Medications Acetaminophen (Tylenol) 650 mg PO Q4H PRN PRN Reason: Pain, Mild (1-3) Aspirin (Aspirin) 325 mg PO QDAY [facility] Last Admin: 08/05/17 12:58 Dose: 325 mg Bisacodyl (Dulcolax) 10 mg IA QDAY PRN PRN Reason: Constipation Clopidogrel Bisulfate (Plavix) 75 mg PO QDAY [facility] Last Admin: 08/05/17 12:58 Dose: 75 mg Dextrose (D50w (25gm) Syringe) 50 ml IV PRN PRN PRN Reason: Hypoglycemia Famotidine (Pepcid) 20 mg PO QPM [facility] Last Admin: 08/05/17 22:42 Dose: 20 mg Hydrochlorothiazide (Hctz) 12.5 mg PO QDAY [facility] Last Admin: 08/05/17 12:57 Dose: 12.5 mg Hydroxychloroquine Sulfate (Plaquenil) 200 mg PO QDAY [facility] Last Admin: 08/05/17 12:57 Dose: 200 mg Hydroxyzine Pamoate (Vistaril) 50 mg PO Q4HR PRN PRN Reason: Itching Insulin Aspart (Novolog) 0 units SUB-Q [facility] PRN Reason: Protocol Last Admin: 08/06/17 07:33 Dose: Not Given Insulin Human Isoph/Insulin Regular (Novolin 70/30) 10 unit SUB-Q BIDDIAB [facility] Last Admin: 08/06/17 07:40 Dose: 10 unit Magnesium Hydroxide (Milk Of Magnesia) 30 ml PO Q4H PRN PRN Reason: Constipation Last Admin: 08/05/17 21:03 Dose: 30 ml Metoclopramide HCl (Reglan) 10 mg PO Q6H PRN PRN Reason: Nausea And Vomiting Ondansetron HCl (Zofran) 4 mg IV Q8H PRN PRN Reason: N/V unrelieved by Reglan Oxycodone HCl (Roxicodone) 2.5 mg PO Q6H PRN PRN Reason: Pain, Moderate (4-6) Oxycodone/Acetaminophen (Percocet 5/325) 1 tab PO Q6H PRN PRN Reason: Pain, Moderate (4-6) Last Admin: 08/05/17 08:25 Dose: 1 tab Pantoprazole Sodium (Protonix) 40 mg PO QDAY [facility] Last Admin: 08/05/17 12:55 Dose: 40 mg Prednisone (Deltasone) 20 mg PO QDAY [facility] Last Admin: 08/05/17 12:56 Dose: 20 mg Pregabalin (Lyrica) 100 mg PO TID [facility] Last Admin: 08/06/17 07:29 Dose: 100 mg Promethazine HCl (Phenergan) 25 mg IA Q6H PRN PRN Reason: Nausea And Vomiting Sertraline HCl (Zoloft) 50 mg PO QDAY [facility] Last Admin: 08/05/17 12:56 Dose: 50 mg Simvastatin (Zocor) 20 mg PO QHS [facility] Last Admin: 08/05/17 21:00 Dose: 20 mg Sodium Chloride (Sodium Chloride Flush Syringe 10 Ml) 10 ml IV PRN PRN PRN Reason: LINE FLUSH Zolpidem Tartrate (Ambien) 10 mg PO HS PRN PRN Reason: Sleep Last Admin: 08/05/17 22:42 Dose: 10 mg Exam - Constitutional Vitals: Temp Pulse Resp BP Pulse Ox 97.9 F 65 18 186/94 99 08/06/17 05:44 08/06/17 05:44 08/06/17 05:44 08/06/17 05:44 08/06/17 05:44 Results - Labs CBC & Chem 7: 08/06/17 05:14 08/06/17 05:14 Labs: Abnormal lab results 08/05/17 08/05/17 08/05/17 Range/Units 12:40 14:02 16:34 RBC (3.65-5.03) M/mm3 MCV (79-97) fl MCH (28-32) pg MCHC (30-34) % RDW (13.2-15.2) % Seg Neutrophils % (40.0-70.0) % Creatinine (0.7-1.2) mg/dL Glucose (65-100) mg/dL POC Glucose 141 H 166 H 176 H (70-105) 08/05/17 08/06/17 08/06/17 Range/Units 21:59 05:14 05:14 RBC 3.08 L (3.65-5.03) M/mm3 MCV 99 H (79-97) fl MCH 34 H (28-32) pg MCHC 35 H (30-34) % RDW 16.5 H (13.2-15.2) % Seg Neutrophils % 73.3 H (40.0-70.0) % Creatinine 0.5 L (0.7-1.2) mg/dL Glucose 116 H (65-100) mg/dL POC Glucose 143 H (70-105)
[2017-08-06] MEDS: PLAQUENIL PO SCH (09:23)
[2017-08-06] MEDS: PROTONIX PO SCH (09:23)
[2017-08-06] MEDS: DELTASONE PO SCH (09:23)
[2017-08-06] MEDS: HCTZ PO SCH (09:24)
[2017-08-06] MEDS: ASPIRIN PO SCH (09:25)
[2017-08-06] MEDS: ZOLOFT PO SCH (09:25)
[2017-08-06] MEDS: PLAVIX PO SCH (09:25)
--- NOTE | 2017-08-06 10:37 | Progress Note ---
Assessment and Plan Assessment and plan: Acute on chronic CVA -MRI revealed 7 mm focus of diffusion restriction in the right parietal lobe consistent with a focus of subacute ischemia - Multiple chronic infarcts - Chronic right parietal infarct -MRA revealed Focal area of stenosis or parietal thrombosis in the left M2 segment -Echo Normal - Continue on aspirin, statin - Neurology consulted, PT OT consulted Hypertension - Permissive hypertension Diabetes mellitus - Sliding scale insulin - 70/30 10 units twice a day Degenerative disc disease - MRI showed degenerative disc disease, spinal stenosis - Pain control, outpatient follow-up with spinal surgery - Continue home dose of steroid DVT prophylaxis - Heparin Disposition - Continue inpatient care. Await PT eval for possible recommendations on placement History Interval history: No new issues overnight. Hospitalist Physical - Constitutional Vitals: Temp Pulse Resp BP Pulse Ox 98.6 F 76 18 154/65 100 08/06/17 07:33 08/06/17 08:34 08/06/17 07:33 08/06/17 07:33 08/06/17 07:33 General appearance: Present: no acute distress, obese - EENT Eyes: Present: PERRL, EOM intact ENT: hearing intact, clear oral mucosa, dentition normal - Neck Neck: Present: supple, normal ROM - Respiratory Respiratory effort: normal Respiratory: bilateral: CTA - Cardiovascular Rhythm: regular Heart Sounds: Present: S1 & S2. Absent: gallop, rub - Extremities Extremities: no ischemia, No edema, Full ROM - Abdominal General gastrointestinal: soft, non-tender, non-distended, normal bowel sounds - Integumentary Integumentary: Present: clear, warm, dry - Neurologic Neurologic: CNII-XII intact, moves all extremities Results - Labs CBC & Chem 7: 08/06/17 05:14 08/06/17 05:14 Labs: Laboratory Last Values WBC 10.4 K/mm3 (4.5-11.0) 08/06/17 05:14 RBC 3.08 M/mm3 (3.65-5.03) L 08/06/17 05:14 Hgb 10.5 gm/dl (10.1-14.3) 08/06/17 05:14 Hct 30.5 % (30.3-42.9) 08/06/17 05:14 MCV 99 fl (79-97) H 08/06/17 05:14 MCH 34 pg (28-32) H 08/06/17 05:14 MCHC 35 % (30-34) H 08/06/17 05:14 RDW 16.5 % (13.2-15.2) H 08/06/17 05:14 Plt Count 197 K/mm3 (140-440) 08/06/17 05:14 Lymph % (Auto) 20.9 % (13.4-35.0) 08/06/17 05:14 [place] % (Auto) 5.8 % (0.0-7.3) 08/06/17 05:14 Eos % (Auto) 0.0 % (0.0-4.3) 08/06/17 05:14 Baso % (Auto) 0.0 % (0.0-1.8) 08/06/17 05:14 Lymph # 2.2 K/mm3 (1.2-5.4) 08/06/17 05:14 [place] # 0.6 K/mm3 (0.0-0.8) 08/06/17 05:14 Eos # 0.0 K/mm3 (0.0-0.4) 08/06/17 05:14 Baso # 0.0 K/mm3 (0.0-0.1) 08/06/17 05:14 Seg Neutrophils % 73.3 % (40.0-70.0) H 08/06/17 05:14 Seg Neutrophils # 7.6 K/mm3 (1.8-7.7) 08/06/17 05:14 PT 14.5 Sec. (12.2-14.9) 08/04/17 16:30 INR 1.07 (0.87-1.13) 08/04/17 16:30 APTT 29.9 Sec. (24.2-36.6) 08/04/17 16:30 Thrombin Time 15.1 Sec. (15.1-19.6) 08/04/17 16:30 Sodium 140 mmol/L (137-145) 08/06/17 05:14 Potassium 4.2 mmol/L (3.6-5.0) 08/06/17 05:14 Chloride 102.6 mmol/L (98-107) 08/06/17 05:14 Carbon Dioxide 27 mmol/L (22-30) 08/06/17 05:14 Anion Gap 15 mmol/L 08/06/17 05:14 BUN 11 mg/dL (7-17) 08/06/17 05:14 Creatinine 0.5 mg/dL (0.7-1.2) L 08/06/17 05:14 Estimated GFR > 60 ml/min 08/06/17 05:14 BUN/Creatinine Ratio 22 % 08/06/17 05:14 Glucose 116 mg/dL (65-100) H 08/06/17 05:14 POC Glucose 143 (70-105) H 08/05/17 21:59 Calcium 9.4 mg/dL (8.4-10.2) 08/06/17 05:14 Troponin T < 0.010 ng/mL (0.00-0.029) 08/04/17 16:30 Triglycerides 47 mg/dL (2-149) 08/05/17 05:22 Cholesterol 183 mg/dL (50-199) 08/05/17 05:22 LDL Cholesterol Direct 128 mg/dL (50-130) 08/05/17 05:22 HDL Cholesterol 46 mg/dL (40-59) 08/05/17 05:22 Cholesterol/HDL Ratio 3.97 % 08/05/17 05:22
[2017-08-06] MEDS: PERCOCET 5/325 PO PRN (17:01)
[2017-08-06] MEDS: PEPCID PO SCH (17:01)
[2017-08-06] MEDS: ZOCOR PO SCH (22:11)
[2017-08-06] MEDS: AMBIEN PO PRN (23:25)
--- NOTE | 2017-08-07 08:57 | Discharge Summary ---
Providers - Providers Date of Admission: 08/04/17 19:45 Date of discharge: 08/08/17 Attending physician: CLAUDY ALVAREZ 08/05/17 08:35 Consult to Physician [CONS] Routine Consulting Provider: FARZANA KILPATRICK Reason For Exam: Right sided weakness Place consult to:: Neurology Notified:: office Was contact made?: Yes Time called:: 09:23 Primary care physician: PROGRAM MEDICAL DIRECTOR Hospitalization Reason for admission: CVA Condition: Fair Hospital course: 57 YO Female with HTN, CVA with right hemiparesis, DM, OA, SLE, Neuropathy, Moderate-Severe LDD presented to ED with complaints of acute onset of Left side weakness. Pt stated that she was unable to get out of bed. Pt denied fever, chills, CP, Palpitations, NVD, syncope, productive cough, recent ill contacts, vision changes, vertigo, trauma, loss of bowel/bladder continence. Patient was admitted with diagnosis of acute CVA. MRI revealed 7 mm focus of diffusion restriction in the right parietal lobe consistent with a focus of subacute ischemia as well as multiple chronic infarcts and chronic right parietal infarct. MRA revealed focal area of stenosis or parietal thrombosis in the left M2 segment (nonsurgical). Echocardiogram within normal limits. Patient was treated with aspirin and statin. Neurologyand PT/OT were consulted. Recommendations were for acute rehabilitation. Disposition: [id number] INPT [facility]ILITY Core Measure Documentation - Palliative Care Palliative Care/ Comfort Measures: Not Applicable - Core Measures Any of the following diagnoses?: stroke - Stroke Discharge Requirements Statin for LDL = or >70 mg/dl on DC: Yes Anticoag for atrial fib/atrial flutter: Not Applicable Reason for no anticoag for AF/F on DC: Not Indicated Antithrombotic for ischemic stroke: Yes Exam - Constitutional Vitals: Temp Pulse Resp BP Pulse Ox 98.4 F 69 20 141/74 100 08/07/17 05:32 08/07/17 05:32 08/07/17 05:32 08/07/17 05:32 08/07/17 05:32 General appearance: Present: no acute distress, well-nourished - EENT Eyes: Present: PERRL ENT: hearing intact, clear oral mucosa - Neck Neck: Present: supple, normal ROM - Respiratory Respiratory effort: normal Respiratory: bilateral: CTA - Cardiovascular Heart Sounds: Present: S1 & S2. Absent: rub, click - Extremities Extremities: pulses symmetrical, No edema Peripheral Pulses: within normal limits - Abdominal General gastrointestinal: Present: soft, non-tender, non-distended, normal bowel sounds Female genitourinary: Present: normal - Integumentary Integumentary: Present: clear, warm, dry - Musculoskeletal Musculoskeletal: gait normal, strength equal bilaterally - Psychiatric Psychiatric: appropriate mood/affect, intact judgment & insight - Neurologic Neurologic: CNII-XII intact, moves all extremities Plan Activity: no restrictions Weight Bearing Status: Weight Bear as Tolerated Diet: low fat, low cholesterol, low salt Follow up with: PRIMARY CAREMD [Primary Care Provider] - 3-5 Days FARZANA KILPATRICK MD [Staff Physician] - 7 Days Prescriptions: Aspirin [Aspirin TAB] 325 mg PO QDAY #30 tablet Clopidogrel [Plavix] 75 mg PO QDAY #30 tablet Hydroxychloroquine [Plaquenil] 200 mg PO QDAY #30 tablet hydrOXYzine PAMOATE [Vistaril] 50 mg PO Q4HR PRN #30 capsule PRN Reason: Itching Insulin NPH/Regular [NovoLIN 70/30] 10 unit SUB-Q BIDDIAB #30 day Lisinopril/Hydrochlorothiazide [Zestoretic 10-12.5 mg] 1 tab PO QDAY #30 tablet metFORMIN [Glucophage] 850 mg PO BID #60 tablet Pantoprazole [Protonix TAB] 40 mg PO QDAY #30 tablet predniSONE [Deltasone] 20 mg PO QDAY #30 tablet Pregabalin [Lyrica] 100 mg PO TID #90 capsule Sertraline [Zoloft] 50 mg PO QDAY #30 tablet Simvastatin [Zocor TAB] 20 mg PO QHS #30 tablet Zolpidem [Ambien] 10 mg PO HS PRN #30 tablet PRN Reason: Sleep
--- NOTE | 2017-08-07 10:45 | Progress Note ---
Assessment and Plan Assessment and plan: Acute on chronic CVA -MRI revealed 7 mm focus of diffusion restriction in the right parietal lobe consistent with a focus of subacute ischemia - Multiple chronic infarcts - Chronic right parietal infarct -MRA revealed Focal area of stenosis or parietal thrombosis in the left M2 segment -Echo Normal - Continue on aspirin, statin - Neurology, PT/OT following Hypertension - Permissive hypertension Diabetes mellitus - Sliding scale insulin - 70/30 10 units twice a day Degenerative disc disease - MRI showed degenerative disc disease, spinal stenosis - Pain control, outpatient follow-up with spinal surgery - Continue home dose of steroid DVT prophylaxis - Heparin Disposition - Continue inpatient care. PT recommends acute rehabilitation. I discussed the case with case management. History Interval history: No new issues overnight. Hospitalist Physical - Constitutional Vitals: Temp Pulse Resp BP Pulse Ox 98.7 F 77 18 138/80 99 08/07/17 09:09 08/07/17 09:09 08/07/17 09:09 08/07/17 09:09 08/07/17 09:09 General appearance: Present: no acute distress, well-nourished - EENT Eyes: Present: PERRL, EOM intact ENT: hearing intact, clear oral mucosa, dentition normal - Neck Neck: Present: supple, normal ROM - Respiratory Respiratory effort: normal Respiratory: bilateral: CTA - Cardiovascular Rhythm: regular Heart Sounds: Present: S1 & S2. Absent: gallop, rub - Extremities Extremities: no ischemia, No edema, Full ROM - Abdominal General gastrointestinal: soft, non-tender, non-distended, normal bowel sounds - Integumentary Integumentary: Present: clear, warm, dry - Neurologic Neurologic: CNII-XII intact, moves all extremities Results - Labs CBC & Chem 7: 08/06/17 05:14 08/06/17 05:14 Labs: Laboratory Last Values WBC 10.4 K/mm3 (4.5-11.0) 08/06/17 05:14 RBC 3.08 M/mm3 (3.65-5.03) L 08/06/17 05:14 Hgb 10.5 gm/dl (10.1-14.3) 08/06/17 05:14 Hct 30.5 % (30.3-42.9) 08/06/17 05:14 MCV 99 fl (79-97) H 08/06/17 05:14 MCH 34 pg (28-32) H 08/06/17 05:14 MCHC 35 % (30-34) H 08/06/17 05:14 RDW 16.5 % (13.2-15.2) H 08/06/17 05:14 Plt Count 197 K/mm3 (140-440) 08/06/17 05:14 Lymph % (Auto) 20.9 % (13.4-35.0) 08/06/17 05:14 [place] % (Auto) 5.8 % (0.0-7.3) 08/06/17 05:14 Eos % (Auto) 0.0 % (0.0-4.3) 08/06/17 05:14 Baso % (Auto) 0.0 % (0.0-1.8) 08/06/17 05:14 Lymph # 2.2 K/mm3 (1.2-5.4) 08/06/17 05:14 [place] # 0.6 K/mm3 (0.0-0.8) 08/06/17 05:14 Eos # 0.0 K/mm3 (0.0-0.4) 08/06/17 05:14 Baso # 0.0 K/mm3 (0.0-0.1) 08/06/17 05:14 Seg Neutrophils % 73.3 % (40.0-70.0) H 08/06/17 05:14 Seg Neutrophils # 7.6 K/mm3 (1.8-7.7) 08/06/17 05:14 PT 14.5 Sec. (12.2-14.9) 08/04/17 16:30 INR 1.07 (0.87-1.13) 08/04/17 16:30 APTT 29.9 Sec. (24.2-36.6) 08/04/17 16:30 Thrombin Time 15.1 Sec. (15.1-19.6) 08/04/17 16:30 Sodium 140 mmol/L (137-145) 08/06/17 05:14 Potassium 4.2 mmol/L (3.6-5.0) 08/06/17 05:14 Chloride 102.6 mmol/L (98-107) 08/06/17 05:14 Carbon Dioxide 27 mmol/L (22-30) 08/06/17 05:14 Anion Gap 15 mmol/L 08/06/17 05:14 BUN 11 mg/dL (7-17) 08/06/17 05:14 Creatinine 0.5 mg/dL (0.7-1.2) L 08/06/17 05:14 Estimated GFR > 60 ml/min 08/06/17 05:14 BUN/Creatinine Ratio 22 % 08/06/17 05:14 Glucose 116 mg/dL (65-100) H 08/06/17 05:14 POC Glucose 147 (70-105) H 08/06/17 21:31 Calcium 9.4 mg/dL (8.4-10.2) 08/06/17 05:14 Troponin T < 0.010 ng/mL (0.00-0.029) 08/04/17 16:30 Triglycerides 47 mg/dL (2-149) 08/05/17 05:22 Cholesterol 183 mg/dL (50-199) 08/05/17 05:22 LDL Cholesterol Direct 128 mg/dL (50-130) 08/05/17 05:22 HDL Cholesterol 46 mg/dL (40-59) 08/05/17 05:22 Cholesterol/HDL Ratio 3.97 % 08/05/17 05:22
[2017-08-07] MEDS: ASPIRIN PO SCH (12:05)
[2017-08-07] MEDS: DELTASONE PO SCH (12:06)
[2017-08-07] MEDS: PROTONIX PO SCH (12:07)
[2017-08-07] MEDS: HCTZ PO SCH (12:07)
[2017-08-07] MEDS: PLAQUENIL PO SCH (12:07)
[2017-08-07] MEDS: ZOLOFT PO SCH (12:14)
[2017-08-07] MEDS: LYRICA PO SCH ×2 (12:14→21:11)
[2017-08-07] MEDS: PLAVIX PO SCH (12:14)
[2017-08-07] MEDS: NOVOLOG SUB-Q SCH ×2 (17:18→22:45)
[2017-08-07] MEDS: ZOCOR PO SCH (21:10)
[2017-08-08] MEDS: AMBIEN PO PRN (00:25)
[2017-08-08] MEDS: NOVOLOG SUB-Q SCH ×3 (07:30→12:50)
[2017-08-08] MEDS: PEPCID PO SCH (07:49)
[2017-08-08] MEDS: LYRICA PO SCH ×3 (07:49→12:50)
[2017-08-08] MEDS: ROXICODONE PO PRN ×2 (07:50→12:51)
[2017-08-08] MEDS: PERCOCET 5/325 PO PRN ×2 (07:50→12:51)
[2017-08-08] MEDS: PLAQUENIL PO SCH (09:55)
[2017-08-08] MEDS: ASPIRIN PO SCH (09:55)
[2017-08-08] MEDS: PROTONIX PO SCH (09:56)
[2017-08-08] MEDS: PLAVIX PO SCH (09:56)
[2017-08-08] MEDS: ZOLOFT PO SCH (09:56)
[2017-08-08] MEDS: HCTZ PO SCH (09:56)
[2017-08-08] MEDS: DELTASONE PO SCH (09:57)
[2017-08-08] MEDS: MILK OF MAGNESIA PO PRN (10:12)
[2017-08-08 10:14] VITALS: BP 135/86
== END 2017-08-08 13:20 | DRG 65 ==
LOC: ED 15:11 → 4A 19:45
PROVIDERS: ADMIT Internal Medicine; ATTEND Hospitalist
PROC: 3E0234Z Introduction of Serum, Toxoid and Vaccine into Muscle, Percutaneous Approach (ICD-10-PCS; principal; 2017-08-05)
DX: I63.9 Cerebral infarction, unspecified (principal); G81.91 Hemiplegia, unspecified affecting right dominant side; I10 Essential (primary) hypertension; M51.9 Unspecified thoracic, thoracolumbar and lumbosacral intervertebral disc disorder; Z23 Encounter for immunization; Z88.5 Allergy status to narcotic agent; Z88.8 Allergy status to other drugs, medicaments and biological substances; M32.9 Systemic lupus erythematosus, unspecified; Z90.49 Acquired absence of other specified parts of digestive tract; Z79.4 Long term (current) use of insulin; Z82.49 Family history of ischemic heart disease and other diseases of the circulatory system; E11.40 Type 2 diabetes mellitus with diabetic neuropathy, unspecified
CPT/HCPCS: 36415; 70450; 70544; 70551; 72148; 80048; 80061; 82962; 84484; 85025; 85610; 85670; 85730; 90686; 93005; 93010; 93306; 93880; 96372; 96374; 99285; J1815; J2920; J7512

== ENCOUNTER 2017-10-20 15:29 | Emergency (ER) | payer MEDICAID ==
[2017-10-20 16:39] LABS: Basophils % (Auto) 0.2 % (0.0-1.8); Eosinophils # (Auto) 0.1 K/mm3 (0.0-0.4); Eosinophils % (Auto) 2.1 % (0.0-4.3); Hematocrit 33.8 % (30.3-42.9); Hemoglobin 11.3 gm/dl (10.1-14.3); Lymphocytes # (Auto) 2.3 K/mm3 (1.2-5.4); Lymphocytes % (Auto) 37.6 % (13.4-35.0); Mean Corpuscular HGB Conc 34 % (30-34); Mean Corpuscular Hemoglobin 35 pg (28-32); Mean Corpuscular Volume 105 fl (79-97); Monocytes # (Auto) 0.4 K/mm3 (0.0-0.8); Monocytes % (Auto) 6.1 % (0.0-7.3); Platelet Count 232 K/mm3 (140-440); Red Blood Count 3.21 M/mm3 (3.65-5.03); Red Cell Distribution Width 16.9 % (13.2-15.2)
[2017-10-20 16:49] LABS: INR 0.95 (0.87-1.13)
[2017-10-20 16:50] LABS: Partial Thromboplastin Time 28.1 Sec. (24.2-36.6)
[2017-10-20 16:58] LABS: Alanine Aminotransferase 32 units/L (7-56); BUN/Creatinine Ratio 17; Blood Urea Nitrogen 12 mg/dL (7-17); Calcium 9.5 mg/dL (8.4-10.2); Hemolysis Index 5
[2017-10-20 17:01] LABS: Bacteria,Urine 4+ /HPF (Negative); Bilirubin,Urine NEG (Negative); Blood,Urine NEG (Negative); Color,Urine Straw (Yellow); Mucus,Urine FEW /HPF; Nitrite,Urine NEG (Negative); Protein,Urine <15 mg/dL mg/dL (Negative); Urobilinogen,Urine < 2.0 mg/dL (<2.0)
[2017-10-20] MEDS ORDERED: IMITREX SUB-Q ONE (23:56)
[2017-10-20] MEDS ORDERED: REGLAN IV ONE (23:56)
--- NOTE | 2017-10-21 00:07 | Emergency Department Report ---
ED General Adult HPI - General Chief complaint: Pain General Stated complaint: FLU LIKE S/S Time Seen by Provider: 10/20/17 23:35 Source: patient, EMS Mode of arrival: Wheelchair Limitations: Physical Limitation - History of Present Illness -: Gradual Location: head Radiation: non-radiation Severity scale (0 -10): 7 Consistency: constant Improves with: none Worsens with: none Associated Symptoms: headaches Treatments Prior to Arrival: other (Tylenol) - Related Data Home Medications Medication Instructions Recorded Confirmed Last Taken Ranitidine HCl [Zantac 300 MG TAB] 300 mg PO QPM 06/02/14 08/04/17 02/08/15 Previous Rx's Medication Instructions Recorded Last Taken Type Pregabalin [Lyrica] 100 mg PO TID #90 capsule 04/01/15 08/02/17 Rx Simvastatin [Zocor TAB] 20 mg PO QHS #30 tablet 04/01/15 08/02/17 Rx Aspirin [Aspirin TAB] 325 mg PO QDAY #30 tablet 08/07/17 Unknown Rx Clopidogrel [Plavix] 75 mg PO QDAY #30 tablet 08/07/17 Unknown Rx Hydroxychloroquine [Plaquenil] 200 mg PO QDAY #30 tablet 08/07/17 Unknown Rx Insulin NPH/Regular [NovoLIN 70/30] 10 unit SUB-Q BIDDIAB #30 day 08/07/17 Unknown Rx Lisinopril/Hydrochlorothiazide 1 tab PO QDAY #30 tablet 08/07/17 Unknown Rx [Zestoretic 10-12.5 mg] Pantoprazole [Protonix TAB] 40 mg PO QDAY #30 tablet 08/07/17 Unknown Rx Pregabalin [Lyrica] 100 mg PO TID #90 capsule 08/07/17 Unknown Rx Sertraline [Zoloft] 50 mg PO QDAY #30 tablet 08/07/17 Unknown Rx Simvastatin [Zocor TAB] 20 mg PO QHS #30 tablet 08/07/17 Unknown Rx Zolpidem [Ambien] 10 mg PO HS PRN #30 tablet 08/07/17 Unknown Rx hydrOXYzine PAMOATE [Vistaril] 50 mg PO Q4HR PRN #30 capsule 08/07/17 Unknown Rx metFORMIN [Glucophage] 850 mg PO BID #60 tablet 08/07/17 Unknown Rx predniSONE [Deltasone] 20 mg PO QDAY #30 tablet 08/07/17 Unknown Rx Metoclopramide [Reglan] 10 mg PO TID PRN 10 Days #15 tab 10/21/17 Unknown Rx SUMAtriptan SUCCINATE [Imitrex] 25 mg PO Q6HR PRN #15 tablet 10/21/17 Unknown Rx Allergies Allergy/AdvReac Type Severity Reaction Status Date / Time ketorolac tromethamine AdvReac Nausea Verified 04/01/15 10:49 [From Toradol] morphine AdvReac Nausea Verified 04/01/15 10:49 ED Review of Systems ROS: Stated complaint: FLU LIKE S/S Other details as noted in HPI Comment: All other systems reviewed and negative Constitutional: no symptoms reported Eyes: denies: eye pain ENT: denies: ear pain Respiratory: no symptoms reported Cardiovascular: denies: chest pain, palpitations, dyspnea on exertion Endocrine: no symptoms reported Gastrointestinal: denies: abdominal pain, nausea, vomiting, diarrhea, constipation Genitourinary: denies: urgency, dysuria, frequency, hematuria Musculoskeletal: denies: back pain, joint swelling, arthralgia Skin: denies: rash, change in color Neurological: headache. denies: weakness, numbness, paresthesias, confusion, abnormal gait Psychiatric: denies: anxiety, auditory hallucinations, visual hallucinations, homicidal thoughts, suicidal thoughts Hematological/Lymphatic: denies: easy bleeding, easy bruising ED Past Medical Hx - Past Medical History Previous Medical History?: Yes Hx Hypertension: Yes Hx CVA: Yes (right sided deficits) Hx Congestive Heart Failure: No Hx Diabetes: Yes Hx Arthritis: Yes Hx Asthma: No Hx COPD: No Hx HIV: No Additional medical history: Lupus, neuropathy - Surgical History Past Surgical History?: Yes Hx Cholecystectomy: Yes - Social History Smoking Status: Never Smoker Substance Use Type: Prescribed - Medications Home Medications: Home Medications Medication Instructions Recorded Confirmed Last Taken Type Ranitidine HCl [Zantac 300 MG TAB] 300 mg PO QPM 06/02/14 08/04/17 02/08/15 History Pregabalin [Lyrica] 100 mg PO TID #90 capsule 04/01/15 08/04/17 08/02/17 Rx Simvastatin [Zocor TAB] 20 mg PO QHS #30 tablet 04/01/15 08/04/17 08/02/17 Rx Aspirin [Aspirin TAB] 325 mg PO QDAY #30 tablet 08/07/17 Unknown Rx Clopidogrel [Plavix] 75 mg PO QDAY #30 tablet 08/07/17 Unknown Rx Hydroxychloroquine [Plaquenil] 200 mg PO QDAY #30 tablet 08/07/17 Unknown Rx Insulin NPH/Regular [NovoLIN 70/30] 10 unit SUB-Q BIDDIAB #30 day 08/07/17 Unknown Rx Lisinopril/Hydrochlorothiazide 1 tab PO QDAY #30 tablet 08/07/17 Unknown Rx [Zestoretic 10-12.5 mg] Pantoprazole [Protonix TAB] 40 mg PO QDAY #30 tablet 08/07/17 Unknown Rx Pregabalin [Lyrica] 100 mg PO TID #90 capsule 08/07/17 Unknown Rx Sertraline [Zoloft] 50 mg PO QDAY #30 tablet 08/07/17 Unknown Rx Simvastatin [Zocor TAB] 20 mg PO QHS #30 tablet 08/07/17 Unknown Rx Zolpidem [Ambien] 10 mg PO HS PRN #30 tablet 08/07/17 Unknown Rx hydrOXYzine PAMOATE [Vistaril] 50 mg PO Q4HR PRN #30 capsule 08/07/17 Unknown Rx metFORMIN [Glucophage] 850 mg PO BID #60 tablet 08/07/17 Unknown Rx predniSONE [Deltasone] 20 mg PO QDAY #30 tablet 08/07/17 Unknown Rx Metoclopramide [Reglan] 10 mg PO TID PRN 10 Days #15 tab 10/21/17 Unknown Rx SUMAtriptan SUCCINATE [Imitrex] 25 mg PO Q6HR PRN #15 tablet 10/21/17 Unknown Rx ED Physical Exam - General Limitations: No Limitations General appearance: alert, in no apparent distress - Head Head exam: Present: atraumatic, normocephalic, normal inspection - Eye Eye exam: Present: normal appearance, PERRL, EOMI Pupils: Present: normal accommodation - ENT ENT exam: Present: normal exam, normal orophraynx, mucous membranes moist - Neck Neck exam: Present: normal inspection, full ROM. Absent: tenderness, meningismus - Respiratory Respiratory exam: Present: normal lung sounds bilaterally, respiratory distress - Cardiovascular Cardiovascular Exam: Present: regular rate, normal rhythm, normal heart sounds - GI/Abdominal GI/Abdominal exam: Present: soft, normal bowel sounds. Absent: distended, tenderness, guarding, rebound - Extremities Exam Extremities exam: Present: normal inspection, full ROM, normal capillary refill. Absent: pedal edema - Back Exam Back exam: Present: normal inspection, full ROM. Absent: tenderness, vertebral tenderness - Neurological Exam Neurological exam: Present: alert, oriented X3, CN II-XII intact, motor sensory deficit, reflexes normal ED Course Vital Signs 10/20/17 10/20/17 10/20/17 15:53 21:47 23:47 Temperature 98.7 F 98.2 F 97.6 F Pulse Rate 68 71 69 Respiratory 18 18 12 Rate Blood Pressure 191/78 181/96 Blood Pressure 176/80 [Left] O2 Sat by Pulse 99 100 100 Oximetry 10/21/17 10/21/17 01:01 02:01 Temperature Pulse Rate 108 H Respiratory 18 Rate Blood Pressure 176/80 175/80 Blood Pressure [Left] O2 Sat by Pulse 99 100 Oximetry ED Medical Decision Making - Lab Data Result diagrams: 10/20/17 16:23 10/20/17 16:23 - EKG Data Interpretation: unchanged when compared t (10/07/2017) - Medical Decision Making Migraine Headache. Critical care attestation.: If time is entered above; I have spent that time in minutes in the direct care of this critically ill patient, excluding procedure time. ED Disposition Clinical Impression: Migraine Qualifiers: Migraine type: without aura Status migrainosus presence: without status migrainosus Intractability: not intractable Qualified Code(s): G43.009 - Migraine without aura, not intractable, without status migrainosus Headache Qualifiers: Headache type: unspecified Headache chronicity pattern: unspecified pattern Intractability: not intractable Qualified Code(s): R51 - Headache Disposition: DC-01 TO HOME OR SELFCARE Is pt being admited?: No Does the pt Need Aspirin: No Condition: Stable Instructions: Migraine Headache (ED), Acute Headache (ED) Additional Instructions: Follow-up with your primary care doctor in 2 days. Return to the emergency room if your condition worsens. Prescriptions: Metoclopramide [Reglan] 10 mg PO TID PRN 10 Days #15 tab PRN Reason: Nausea And Vomiting SUMAtriptan SUCCINATE [Imitrex] 25 mg PO Q6HR PRN #15 tablet PRN Reason: Headache Referrals: KELLEN PALMA MD [Primary Care Provider] - 3-5 Days
[2017-10-21 02:34] VITALS: BP 175/80
[2017-10-21] MEDS ORDERED: IMITREX SUB-Q ONE (02:57)
== END 2017-10-21 04:50 | disposition home or self-care (01) ==
LOC: ED 15:29
DX: G43.009 Migraine without aura, not intractable, without status migrainosus (principal); I10 Essential (primary) hypertension; I63.9 Cerebral infarction, unspecified; E11.9 Type 2 diabetes mellitus without complications; M19.90 Unspecified osteoarthritis, unspecified site; G62.9 Polyneuropathy, unspecified; Z79.82 Long term (current) use of aspirin; Z88.6 Allergy status to analgesic agent
CPT/HCPCS: 36415; 80053; 81001; 85025; 85610; 85730; 96372; 96374; 99284; J2765; J3030

== ENCOUNTER 2018-10-23 12:27 | Emergency (ER) | payer MEDICAID ==
[2018-10-23 12:37] VITALS: BP 161/83
[2018-10-23] MEDS ORDERED: DILAUDID IM ONE (14:18)
[2018-10-23] MEDS ORDERED: ZOFRAN ODT PO ONE (14:18)
[2018-10-23 14:51] LABS: Basophils % (Auto) 0.6 % (0.0-1.8); Eosinophils # (Auto) 0.1 K/mm3 (0.0-0.4); Eosinophils % (Auto) 1.2 % (0.0-4.3); Hematocrit 32.4 % (30.3-42.9); Hemoglobin 10.7 gm/dl (10.1-14.3); Lymphocytes # (Auto) 2.6 K/mm3 (1.2-5.4); Lymphocytes % (Auto) 46.3 % (13.4-35.0); Mean Corpuscular HGB Conc 33 % (30-34); Mean Corpuscular Volume 86 fl (79-97); Monocytes # (Auto) 0.4 K/mm3 (0.0-0.8); Platelet Count 284 K/mm3 (140-440); Red Blood Count 3.78 M/mm3 (3.65-5.03); Red Cell Distribution Width 15.8 % (13.2-15.2)
[2018-10-23 15:07] LABS: BUN/Creatinine Ratio 10; Blood Urea Nitrogen 8 mg/dL (7-17); Calcium 9.2 mg/dL (8.4-10.2); Hemolysis Index 10
--- NOTE | 2018-10-23 15:18 | Emergency Department Report ---
ED Back Pain/Injury HPI - General Chief Complaint: Back Pain/Injury Stated Complaint: LOWER BACK PAIN Time Seen by Provider: 10/23/18 12:51 Source: patient Limitations: No Limitations - History of Present Illness Initial Comments: 58-year-old female with a past medical history of lupus, neuropathy, CVA with residual right-sided deficits, hypertension, and diabetes presents to Hospital planning on nontraumatic back pain 2 days. Pain is in the mid lower back. Patient states she has a history of sciatica. She is not taking any pain medications. Pain is constant, worse with palpation and movement and rated 10/10 in intensity. She denies any paresthesias or leg weakness other than the existing right arm and right leg weakness from previous CVA. She denies dysuria, nausea, vomiting, hematuria, or fever. Patient has been seen here recently for back pain status post fall. - Related Data Home Medications Medication Instructions Recorded Confirmed Last Taken raNITIdine HCl [Zantac 300 MG TAB] 300 mg PO QPM 06/02/14 08/04/17 02/08/15 Previous Rx's Medication Instructions Recorded Last Taken Type Pregabalin [Lyrica] 100 mg PO TID #90 capsule 04/01/15 08/02/17 Rx Simvastatin [Zocor TAB] 20 mg PO QHS #30 tablet 04/01/15 08/02/17 Rx Aspirin [Aspirin TAB] 325 mg PO QDAY #30 tablet 08/07/17 Unknown Rx Clopidogrel [Plavix] 75 mg PO QDAY #30 tablet 08/07/17 Unknown Rx Hydroxychloroquine [Plaquenil] 200 mg PO QDAY #30 tablet 08/07/17 Unknown Rx Insulin NPH/Regular [NovoLIN 70/30] 10 unit SUB-Q BIDDIAB #30 day 08/07/17 Unknown Rx Lisinopril/Hydrochlorothiazide 1 tab PO QDAY #30 tablet 08/07/17 Unknown Rx [Zestoretic 10-12.5 mg] Pantoprazole [Protonix TAB] 40 mg PO QDAY #30 tablet 08/07/17 Unknown Rx Pregabalin [Lyrica] 100 mg PO TID #90 capsule 08/07/17 Unknown Rx Sertraline [Zoloft] 50 mg PO QDAY #30 tablet 08/07/17 Unknown Rx Simvastatin [Zocor TAB] 20 mg PO QHS #30 tablet 08/07/17 Unknown Rx Zolpidem [Ambien] 10 mg PO HS PRN #30 tablet 08/07/17 Unknown Rx hydrOXYzine PAMOATE [Vistaril] 50 mg PO Q4HR PRN #30 capsule 08/07/17 Unknown Rx metFORMIN [Glucophage] 850 mg PO BID #60 tablet 08/07/17 Unknown Rx predniSONE [Deltasone] 20 mg PO QDAY #30 tablet 08/07/17 Unknown Rx Metoclopramide [Reglan TAB] 10 mg PO TID PRN 10 Days #15 tab 10/21/17 Unknown Rx SUMAtriptan SUCCINATE [Imitrex] 25 mg PO Q6HR PRN #15 tablet 10/21/17 Unknown Rx oxyCODONE /ACETAMINOPHEN [Percocet 1 tab PO Q6H PRN #20 tablet 08/27/18 Unknown Rx 5/325 mg] HYDROcodone/APAP 5-325 [Sullivan 1 each PO Q6HR PRN #15 tablet 10/23/18 Unknown Rx 5/325] Nitrofurantoin Monohyd/M-Cryst 100 mg PO BID #14 capsule 10/23/18 Unknown Rx [Macrobid 100 mg Capsule] Ondansetron [Zofran Odt] 4 mg PO Q8HR PRN #14 tab.rapdis 10/23/18 Unknown Rx Allergies Allergy/AdvReac Type Severity Reaction Status Date / Time ketorolac tromethamine AdvReac Nausea Verified 04/01/15 10:49 [From Toradol] morphine AdvReac Nausea Verified 04/01/15 10:49 ED Review of Systems ROS: Stated complaint: LOWER BACK PAIN Other details as noted in HPI Comment: All other systems reviewed and negative ED Past Medical Hx - Past Medical History Hx Hypertension: Yes Hx CVA: Yes (right sided deficits) Hx Congestive Heart Failure: No Hx Diabetes: Yes Hx Arthritis: Yes Hx Asthma: No Hx COPD: No Hx HIV: No Additional medical history: Lupus, neuropathy - Surgical History Hx Cholecystectomy: Yes - Social History Smoking Status: Never Smoker Substance Use Type: None - Medications Home Medications: Home Medications Medication Instructions Recorded Confirmed Last Taken Type raNITIdine HCl [Zantac 300 MG TAB] 300 mg PO QPM 06/02/14 08/04/17 02/08/15 History Pregabalin [Lyrica] 100 mg PO TID #90 capsule 04/01/15 08/04/17 08/02/17 Rx Simvastatin [Zocor TAB] 20 mg PO QHS #30 tablet 04/01/15 08/04/17 08/02/17 Rx Aspirin [Aspirin TAB] 325 mg PO QDAY #30 tablet 08/07/17 Unknown Rx Clopidogrel [Plavix] 75 mg PO QDAY #30 tablet 08/07/17 Unknown Rx Hydroxychloroquine [Plaquenil] 200 mg PO QDAY #30 tablet 08/07/17 Unknown Rx Insulin NPH/Regular [NovoLIN 70/30] 10 unit SUB-Q BIDDIAB #30 day 08/07/17 Unknown Rx Lisinopril/Hydrochlorothiazide 1 tab PO QDAY #30 tablet 08/07/17 Unknown Rx [Zestoretic 10-12.5 mg] Pantoprazole [Protonix TAB] 40 mg PO QDAY #30 tablet 08/07/17 Unknown Rx Pregabalin [Lyrica] 100 mg PO TID #90 capsule 08/07/17 Unknown Rx Sertraline [Zoloft] 50 mg PO QDAY #30 tablet 08/07/17 Unknown Rx Simvastatin [Zocor TAB] 20 mg PO QHS #30 tablet 08/07/17 Unknown Rx Zolpidem [Ambien] 10 mg PO HS PRN #30 tablet 08/07/17 Unknown Rx hydrOXYzine PAMOATE [Vistaril] 50 mg PO Q4HR PRN #30 capsule 08/07/17 Unknown Rx metFORMIN [Glucophage] 850 mg PO BID #60 tablet 08/07/17 Unknown Rx predniSONE [Deltasone] 20 mg PO QDAY #30 tablet 08/07/17 Unknown Rx Metoclopramide [Reglan TAB] 10 mg PO TID PRN 10 Days #15 tab 10/21/17 Unknown Rx SUMAtriptan SUCCINATE [Imitrex] 25 mg PO Q6HR PRN #15 tablet 10/21/17 Unknown Rx oxyCODONE /ACETAMINOPHEN [Percocet 1 tab PO Q6H PRN #20 tablet 08/27/18 Unknown Rx 5/325 mg] HYDROcodone/APAP 5-325 [Sullivan 1 each PO Q6HR PRN #15 tablet 10/23/18 Unknown Rx 5/325] Nitrofurantoin Monohyd/M-Cryst 100 mg PO BID #14 capsule 10/23/18 Unknown Rx [Macrobid 100 mg Capsule] Ondansetron [Zofran Odt] 4 mg PO Q8HR PRN #14 tab.rapdis 10/23/18 Unknown Rx ED Physical Exam - General Limitations: No Limitations - Other Other exam information: General: No limitations, patient is alert in no acute distress Head exam: Atraumatic, normocephalic Eyes exam: Normal appearance, pupils equal reactive to light, extraocular movements intact ENT: Moist mucous membrane, normal oropharynx Neck exam: Normal inspection, full range of motion, no meningismus nontender Respiratory exam: Clear to auscultation bilateral, no wheezes, rales, crackles Cardiovascular: Normal rate and rhythm, normal heart sounds Abdomen: Soft, nondistended, and nontender, with normal bowel sounds, no rebound, or guarding Extremity: Full range of motion normal inspection no deformity Back: Normal Inspection, full range of motion, no significant tenderness on palpation but pain with movement Neurologic: Alert, oriented x3, cranial nerves intact, right-sided paralysis status post CVA Psychiatric: normal affect, normal mood Skin: Warm, dry, intact ED Course Vital Signs 10/23/18 10/23/18 12:33 14:56 Temperature 98.6 F Pulse Rate 71 Respiratory 16 18 Rate Blood Pressure 161/83 O2 Sat by Pulse 100 Oximetry ED Medical Decision Making - Lab Data Result diagrams: 10/23/18 14:35 10/23/18 14:35 - Radiology Data Radiology results: report reviewed cc: SARBJIT GRAHAM MD Fluoro Time In Minutes: AP AND LATERAL LUMBOSACRAL SPINE: History: Nontraumatic pain. Osteopenia is suspected. 10 mm anterolisthesis of L4 with respect to L5 is identified which appears to be secondary to degenerative facet arthropathy. The remaining lumbar vertebra are normal in alignment. No evidence for compression deformity or bone lesion. Moderate disc space narrowing is noted at L4-5 and L5-S1. Moderate diffuse facet arthropathy. IMPRESSION: Lumbar spondylosis. Grade 2 anterolisthesis of L4 with respect L5. No acute process is identified. No change since 08/25/18. - Medical Decision Making X-ray unchanged compared to previous. Patient has not somatic back pain. Urine has nitrites and therefore will be covered with Macrobid. Pain improved in the ED after receiving IM Dilaudid. Additional pain medication will be prescribed and follow-up incurred - Differential Diagnosis fracture, contusion, herniated disc, UTI Critical Care Time: No Critical care attestation.: If time is entered above; I have spent that time in minutes in the direct care of this critically ill patient, excluding procedure time. ED Disposition Clinical Impression: Back pain, UTI (urinary tract infection) Disposition: TO HOME OR SELFCARE Is pt being admited?: No Does the pt Need Aspirin: No Condition: Stable Instructions: Urinary Tract Infection in Women (ED), Back Pain (ED) Additional Instructions: Take the medication as prescribed. Follow up with your doctor. Return if symptoms worsen as indicated by your discharge instructions Prescriptions: HYDROcodone/APAP 5-325 [Sullivan 5/325] 1 each PO Q6HR PRN #15 tablet PRN Reason: Pain Nitrofurantoin Monohyd/M-Cryst [Macrobid 100 mg Capsule] 100 mg PO BID #14 capsule Ondansetron [Zofran Odt] 4 mg PO Q8HR PRN #14 tab.rapdis PRN Reason: Nausea And Vomiting Referrals: MEÑO AHUMADA [Other] - 3-5 Days Time of Disposition: 18:12
--- NOTE | 2018-10-23 15:51 | XRay Report ---
AP AND LATERAL LUMBOSACRAL SPINE: History: Nontraumatic pain. Osteopenia is suspected. 10 mm anterolisthesis of L4 with respect to L5 is identified which appears to be secondary to degenerative facet arthropathy. The remaining lumbar vertebra are normal in alignment. No evidence for compression deformity or bone lesion. Moderate disc space narrowing is noted at L4-5 and L5-S1. Moderate diffuse facet arthropathy. IMPRESSION: Lumbar spondylosis. Grade 2 anterolisthesis of L4 with respect L5. No acute process is identified. No change since 08/25/18.
[2018-10-23 16:09] LABS: Bacteria,Urine 1+ /HPF (Negative); Bilirubin,Urine NEG (Negative); Blood,Urine NEG (Negative); Color,Urine Yellow (Yellow); Mucus,Urine FEW /HPF; Protein,Urine <15 mg/dL mg/dL (Negative)
[2018-10-23] MEDS ORDERED: MACROBID PO ONE (16:53)
== END 2018-10-23 18:46 | disposition home or self-care (01) ==
LOC: ED 12:27
DX: N39.0 Urinary tract infection, site not specified (principal); I10 Essential (primary) hypertension; E11.40 Type 2 diabetes mellitus with diabetic neuropathy, unspecified; Z86.73 Personal history of transient ischemic attack (TIA), and cerebral infarction without residual deficits; Z79.01 Long term (current) use of anticoagulants; Z79.82 Long term (current) use of aspirin; Z79.4 Long term (current) use of insulin; Z88.6 Allergy status to analgesic agent; Z90.49 Acquired absence of other specified parts of digestive tract
CPT/HCPCS: 36415; 72100; 80048; 81001; 85025; 96372; 99284; J1170

== ENCOUNTER 2019-02-17 10:58 | Outpatient (CLI) | payer MEDICAID ==
--- NOTE | 2019-02-17 13:58 | XRay Report ---
RIGHT WRIST 2 VIEWS: 02/17/19 11:09:00 CLINICAL: Pain. FINDINGS: Mild osteopenia. No fracture or dislocation. The carpal bones are intact. Mild radiocarpal joint arthritis and mild osteoarthritis at the basal joint of the thumb. No erosions. Normal soft tissues. IMPRESSION: Mild osteoarthritis.
--- NOTE | 2019-02-17 22:58 | Magnetic Resonance Report ---
PROCEDURE: MR LUMBAR SPINE WO CON HISTORY: LOW BACK PAIN FINDINGS: MRI of the lumbar spine was performed using sagittal T1, sagittal T2, sagittal inversion re covery, axial T1 and axial T2-weighted images. These images demonstrate that the conus medullaris lies at the level of T12-L1 and appears unremarkab le. And T11-12 there is loss of disc T2 signal intensity. There is a minimal posterior disc bulge which d oes not result in canal stenosis or significant neural foraminal narrowing. At T12-L1 there is loss of disc T2 signal intensity. There are no posterior disc abnormalities. At L1-L2 the intervertebral disc is normal in height and T2 signal intensity. There are no posterior disc abnormalities. At L2-L3 and L3-L4 there is loss of disc T2 signal intensity. There are small posterior disc bulges w hich do not result in canal stenosis. There is mild bilateral neural foraminal narrowing without nerv e root impingement. At L4-L5 there is 0.7 cm anterolisthesis of L4 on L5. The anterolisthesis, with a posterior disc bulg e, results in mild canal stenosis at this level. There is moderate bilateral neural foraminal narrowi ng with suspected mild impingement of exiting L4 nerve roots. There is subchondral degenerative endpl ate edema at this level. At L5-S1 there is loss of disc T2 signal intensity. There is a posterior disc bulge which likely abut s the S1 nerve roots in the central canal. There is mild left and moderate right foraminal narrowing with suspected mild impingement of the exiting right L5 nerve root. IMPRESSION: Grade 1 degenerative anterolisthesis of L4 on L5 with mild canal stenosis at this level and impingeme nt of both exiting L4 nerve roots Posterior disc bulge L5-S1 resulting in suspected mild impingement of the exiting right L5 nerve root This document is electronically signed by Souleymane Gray MD., February 17 2019 10:57:11 PM ET
== END 2019-02-17 10:59 | disposition home or self-care (01) ==
LOC: XRAY 10:58
PROVIDERS: ATTEND Physical Medicine & Rehabilitation
DX: M43.16 Spondylolisthesis, lumbar region (principal); M25.531 Pain in right wrist; M48.061 Spinal stenosis, lumbar region without neurogenic claudication; M19.031 Primary osteoarthritis, right wrist; E11.9 Type 2 diabetes mellitus without complications; E78.5 Hyperlipidemia, unspecified; I10 Essential (primary) hypertension
CPT/HCPCS: 72148

== ENCOUNTER 2019-06-11 10:42 | Outpatient (CLI) | payer MEDICAID ==
--- NOTE | 2019-06-11 11:38 | XRay Report ---
LEFT KNEE HISTORY: Pain. COMPARISON: None. TECHNIQUE: 4 views of the left knee obtained. FINDINGS: Bones: No fracture or dislocation. Joint spaces: Medial joint space narrowing with large osteophytes. Minimal narrowing of the lateral j oint space with small osteophytes. Patellofemoral joint space narrowing with osteophytes. No joint ef fusion. Soft tissues: No significant abnormality. Additional findings: None. IMPRESSION: Moderate osteoarthritis involving the patellofemoral joint and the medial knee joint. Signer Name: Rene Cline MD Signed: 06/11/2019 11:34 AM Workstation Name: [id number]
== END 2019-06-11 10:43 | disposition home or self-care (01) ==
LOC: XRAY 10:42
PROVIDERS: ATTEND Physical Medicine & Rehabilitation
DX: M17.12 Unilateral primary osteoarthritis, left knee (principal); E78.00 Pure hypercholesterolemia, unspecified; I10 Essential (primary) hypertension